=== PATIENT | male | born 1985 | race Hispanic/Latino ===

== ENCOUNTER 2024-12-23 14:05 | Inpatient (IN) | payer OTHER ==
[~2024-12-23 14:05] MED LIST: Iopamidol-370 76% 500 ML MDV (1 ML CHARGE) ONE
[2024-12-23 14:50] LABS: #Basophils Less than 0.03 10x3/uL (0.0-0.2); #Eosinophils Less than 0.03 10x3/uL (0.0-0.7); %Basophils 0.2 % (0.0-1.0); %Lymphocytes 12.8 % (21.0-51.0); %Monocytes 6.9 % (0.0-10.0); %Neutrophils 79.7 % (42.0-75.0); Hematocrit 40.8 % (42.0-52.0); Hemoglobin 14.3 g/dL (14.0-18.0); Mean Corpuscular Hemoglobin 29.1 pg (27.0-31.0); Mean Corpuscular Volume 83.1 fL (78.0-98.0); Mean Platelet Volume 11.1 fL (7.4-10.4); Platelet Count 192 10x3/uL (130-400); RBC Distribution Width 12.5 % (11.5-14.5); Red Blood Cell (RBC) Count 4.91 mill/uL (4.70-6.10)
[2024-12-23] MEDS ORDERED: Sodium Chloride 0.9% 100 ML ONE (14:50)
[2024-12-23] MEDS ORDERED: Cefepime 2 GM VIAL ONE (14:50)
[2024-12-23 15:11] LABS: ALT (SGPT) 17 U/L (Less than 45); AST (SGOT) 24 U/L (11-34); Albumin 3.5 g/dL (3.1-4.5); Alkaline Phosphatase 71 U/L (40-110); Anion Gap 17 mmol/L (10-20); BUN (Urea Nitrogen) 26 mg/dL (8.9-20.6); Bilirubin, Total 0.7 mg/dL (0.3-1.2); Calc. Creatinine Clearance 0 mL/min (70-130); Calcium 9.7 mg/dL (7.8-10.44); Carbon Dioxide 26 mmol/L (22-29); Chloride 90 mmol/L (98-107); Estimated GFR 62; Globulin 5.1 g/dL (2.4-3.5); Glucose 401 mg/dL (70-105); Protein, Total 8.6 g/dL (6.0-8.3); Sodium 129 mmol/L (136-145)
[2024-12-23] MEDS ORDERED: metroNIDAZOLE 500 MG (100 mL) BAG ONE (16:30)
[2024-12-23] MEDS ORDERED: Calcium Carbonate 500 MG ChewTAB PO PRN (16:48)
[2024-12-23] MEDS ORDERED: Bisacodyl 5 MG TAB PO PRN (16:48)
[2024-12-23] MEDS ORDERED: Ondansetron PF 4 MG/2 ML Vial IVP PRN (16:48)
[2024-12-23] MEDS ORDERED: Senokot S 8.6-50 MG TAB PO PRN (16:48)
[2024-12-23] MEDS ORDERED: Acetaminophen 650 MG Suppository PR PRN (16:48)
[2024-12-23] MEDS ORDERED: Ondansetron ODT 4 MG TAB PO PRN (16:48)
[2024-12-23] MEDS ORDERED: Acetaminophen/Codeine 30-300mg Tablet PO PRN ×2 (16:48)
[2024-12-23] MEDS ORDERED: Glucagon 1 MG/ML KIT IM PRN (16:51)
[2024-12-23] MEDS ORDERED: Dextrose 5% in Water 1,000 ML IV PRN (16:51)
[2024-12-23] MEDS ORDERED: Dextrose 50% Abboject 50 ML SYRINGE SLOW IVP PRN (16:51)
[2024-12-23] MEDS ORDERED: HYDROcodone/Acetaminophen 10/325 mg Tablet PO PRN (17:30)
[2024-12-23] MEDS ORDERED: Melatonin 3 MG TAB PO PRN (17:31)
[2024-12-23] MEDS: Insulin Regular, Human 100 UNIT/ML 10 ML VIAL SC SCH (17:48)
[2024-12-23] MEDS: Vancomycin (BATCH) 2.5 GM in Premix 1 BAG IVPB SCH (17:49)
[2024-12-23] MEDS: metFORMIN 500 MG TAB PO SCH (17:49)
[2024-12-23] MEDS: Sodium Chloride 0.9% 1,000 ML IV SCH (17:49)
[2024-12-23] MEDS: Acetaminophen 325 MG TAB PO PRN (17:55)
[2024-12-23 19:38] VITALS: BMI 33.4
[2024-12-23 20:29] LABS: Lactic Acid 1.05 mmol/L (0.50-2.20)
[2024-12-23] MEDS ORDERED: Enoxaparin 40 MG (0.4 mL) SYRINGE SC SCH (21:00)
[2024-12-23] MEDS: HYDROcodone/Acetaminophen 10/325 mg Tablet PO PRN (21:02)
[2024-12-23] MEDS: metroNIDAZOLE 500 MG in Premix 1 BAG IVPB SCH (21:03)
[2024-12-23] MEDS: Heparin 5,000 UNITS/ML VIAL SC SCH (21:13)
[2024-12-23 22:01] LABS: Bacteria/HPF None Seen HPF (None Seen); Bilirubin Negative (Negative); Blood, Urine 2+ (Negative); CAUTI Indications for Culture Fever or rigors; Clarity Clear (Clear); Glucose, Urine (Dipstick) Greater than 1000 mg/dL (Negative); Ketone, Urine 60 mg/dL (Negative); Leukocyte Negative Leu/uL (Negative); Nitrite Negative (Negative); Protein, Urine (Dipstick) 20 mg/dL (Neg-Trace); RBC/HPF 0-3 HPF (0-3); Squamous Epithelial None Seen HPF (0-3); Urobilinogen Normal mg/dL (Less than 2); WBC/HPF 0-3 HPF (0-3)
[2024-12-23 22:04] LABS: Urine Culture Reflex No No
[2024-12-24] MEDS: VANCOMYCIN 1.25 GM/250 ML BAG 1.25 GM in Premix 1 BAG IVPB SCH (00:10)
[2024-12-24] MEDS: Cefepime 2 GM in Sodium Chloride 0.9% 100 ML IVPB SCH (02:31)
[2024-12-24 05:08] LABS: #Basophils 0.03 10x3/uL (0.0-0.2); #Eosinophils Less than 0.03 10x3/uL (0.0-0.7); %Basophils 0.2 % (0.0-1.0); %Eosinophils 0.1 % (0.0-10.0); %Lymphocytes 15.2 % (21.0-51.0); %Monocytes 7.2 % (0.0-10.0); %Neutrophils 76.6 % (42.0-75.0); Hematocrit 35.5 % (42.0-52.0); Hemoglobin 12.4 g/dL (14.0-18.0); Mean Corpuscular HGB CONC 34.9 g/dL (32.0-36.0); Mean Corpuscular Hemoglobin 29.5 pg (27.0-31.0); Mean Corpuscular Volume 84.3 fL (78.0-98.0); Mean Platelet Volume 11.2 fL (7.4-10.4); Platelet Count 173 10x3/uL (130-400); RBC Distribution Width 12.6 % (11.5-14.5); Red Blood Cell (RBC) Count 4.21 mill/uL (4.70-6.10)
[2024-12-24] MEDS: Levothyroxine Sodium 100 MCG TAB PO SCH (05:37)
[2024-12-24 06:20] LABS: BUN (Urea Nitrogen) 12 mg/dL (8.9-20.6); Calc. Creatinine Clearance 234 mL/min (70-130); Estimated GFR 117
[2024-12-24 06:22] LABS: Calcium 8.3 mg/dL (7.8-10.44); Chloride 97 mmol/L (98-107); Potassium 3.4 mmol/L (3.5-5.1); Sodium 132 mmol/L (136-145)
[2024-12-24 06:23] LABS: Anion Gap 16 mmol/L (10-20); Carbon Dioxide 22 mmol/L (22-29); Glucose 197 mg/dL (70-105); Vancomycin, Random 15.9 ug/mL (See Comment)
[2024-12-24] MEDS: Insulin Regular, Human 100 UNIT/ML 10 ML VIAL SC PRN ×2 (12:30→20:30)
[2024-12-24] MEDS: Vancomycin (BATCH) 2 GM in Premix 1 BAG IVPB SCH (12:32)
[2024-12-24] MEDS: Pioglitazone HCl 15 MG TAB PO SCH (20:30)
[2024-12-25 05:11] LABS: #Basophils 0.05 10x3/uL (0.0-0.2); %Basophils 0.4 % (0.0-1.0); %Eosinophils 0.8 % (0.0-10.0); %Lymphocytes 20.3 % (21.0-51.0); %Neutrophils 70.7 % (42.0-75.0); Hematocrit 33.3 % (42.0-52.0); Hemoglobin 11.4 g/dL (14.0-18.0); Mean Corpuscular HGB CONC 34.2 g/dL (32.0-36.0); Mean Corpuscular Hemoglobin 29.2 pg (27.0-31.0); Mean Corpuscular Volume 85.4 fL (78.0-98.0); Mean Platelet Volume 10.8 fL (7.4-10.4); Platelet Count 177 10x3/uL (130-400); RBC Distribution Width 12.8 % (11.5-14.5)
[2024-12-25 05:23] LABS: Vancomycin, Random 18.9 ug/mL (See Comment)
[2024-12-25 05:24] LABS: Anion Gap 12 mmol/L (10-20); BUN (Urea Nitrogen) 8 mg/dL (8.9-20.6); Calc. Creatinine Clearance 250 mL/min (70-130); Calcium 8.3 mg/dL (7.8-10.44); Carbon Dioxide 29 mmol/L (22-29); Chloride 99 mmol/L (98-107); Estimated GFR 119; Glucose 183 mg/dL (70-105); Potassium 3.6 mmol/L (3.5-5.1); Sodium 136 mmol/L (136-145)
[2024-12-25] MEDS: Losartan 25 MG TAB PO SCH (08:09)
[2024-12-25] MEDS: Atorvastatin Calcium 20 MG TAB PO SCH (08:09)
[2024-12-25] MEDS: Hydrochlorothiazide 25 MG TAB PO SCH (08:10)
[2024-12-25] MEDS: TETANUS, DIPHTHERIA TOX,ADULT (TDVAX) 0.5 ML VIAL IM ONE (14:05)
[2024-12-25] MEDS: cefTRIAXone\\ROCEPHIN 1 GM in Sodium Chloride 0.9% 100 ML IVPB SCH (16:50)
[2024-12-26 05:09] LABS: #Basophils 0.04 10x3/uL (0.0-0.2); %Basophils 0.3 % (0.0-1.0); %Eosinophils 1.9 % (0.0-10.0); %Lymphocytes 25.9 % (21.0-51.0); %Monocytes 7.4 % (0.0-10.0); %Neutrophils 63.2 % (42.0-75.0); Hematocrit 33.4 % (42.0-52.0); Hemoglobin 11.5 g/dL (14.0-18.0); Mean Corpuscular HGB CONC 34.4 g/dL (32.0-36.0); Mean Corpuscular Hemoglobin 29.1 pg (27.0-31.0); Mean Corpuscular Volume 84.6 fL (78.0-98.0); Mean Platelet Volume 10.5 fL (7.4-10.4); Platelet Count 198 10x3/uL (130-400); RBC Distribution Width 12.8 % (11.5-14.5); Red Blood Cell (RBC) Count 3.95 mill/uL (4.70-6.10)
[2024-12-26 05:20] LABS: Anion Gap 11 mmol/L (10-20); BUN (Urea Nitrogen) 8 mg/dL (8.9-20.6); Calc. Creatinine Clearance 228 mL/min (70-130); Calcium 8.3 mg/dL (7.8-10.44); Carbon Dioxide 29 mmol/L (22-29); Chloride 98 mmol/L (98-107); Estimated GFR 116; Glucose 192 mg/dL (70-105); Potassium 3.2 mmol/L (3.5-5.1); Sodium 135 mmol/L (136-145)
[2024-12-26 08:26] VITALS: BP 146/79; TEMP 98.6
[2024-12-26] MEDS: Potassium Chloride 20 MEQ TAB PO SCH (11:59)
== END 2024-12-26 13:11 | disposition home or self-care (01) | DRG 872 ==
LOC: ERS 14:05 → T4-A 16:17
PROVIDERS: ADMIT Internal Medicine; ATTEND Internal Medicine
DX: A40.9 Streptococcal sepsis, unspecified (principal); L03.115 Cellulitis of right lower limb; N17.9 Acute kidney failure, unspecified; R65.20 Severe sepsis without septic shock; I10 Essential (primary) hypertension; E78.5 Hyperlipidemia, unspecified; E03.9 Hypothyroidism, unspecified; E11.65 Type 2 diabetes mellitus with hyperglycemia; G47.33 Obstructive sleep apnea (adult) (pediatric); Z90.89 Acquired absence of other organs
CPT/HCPCS: 36415; 36416; 80048; 80053; 80202; 81001; 83036; 83605; 85025; 86141; 87040; 87070; 87077; 87205; 90714; 96365; 96367; 96368; J0692; J0696; J1815; J3370; J7030; Q9967